=== PATIENT | female | born 1980 ===

== ENCOUNTER 2017-10-16 15:35 | Emergency (ER) | payer BC ==
[2017-10-16 15:37] VITALS: BMI 30.9
[2017-10-16 15:42] VITALS: RESP 18
[2017-10-16 16:20] VITALS: TEMP 98.6
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
[2017-10-16 16:36] LABS: ALBUMIN 4.5 g/dL (3.0-4.8); ALT/SGPT 25 U/L (7-56); AST/SGOT 26 U/L (14-36); BLOOD UREA NITROGEN 17 mg/dL (7-21); CALCIUM 9.3 mg/dL (8.4-10.5); GFR AFRICAN-AMERICAN > 60; GFR NON-AFRICAN AMERICAN > 60
[2017-10-16 16:39] LABS: BASO # 0.01 K/mm3 (0.0-2.0); BASO % 0.2 % (0.0-3.0); EOS % 0.6 % (1.5-5.0); GRAN # 2.81 (1.4-6.5); GRAN % 59.6 % (50.0-68.0); HEMOGLOBIN 12.7 g/dL (12.0-16.0); LYMPH # 1.5 (1.2-3.4); MEAN CELL VOLUME 78.4 fl (80.0-105.0); MEAN CORPUSCULAR HEMOGLOBIN 25.9 pg (25.0-35.0); MEAN PLATELET VOLUME 11.1 fl (7.0-11.0); MONO # 0.4 (0.1-0.6); MONO % 7.6 % (1.0-6.0); RBC 4.91 10^6/uL (3.5-6.1); RED CELL DISTRIBUTION WIDTH 14.4 % (11.5-14.5); WHITE BLOOD COUNT 4.7 10^3/ul (4.5-11.0)
[2017-10-16 16:47] LABS: TROPONIN I < 0.01 ng/mL
[2017-10-16 17:04] LABS: INR 0.97 (0.93-1.08); PARTIAL THROMBOPLASTIN TIME 26.7 Seconds (25.1-36.5)
[2017-10-16 17:27] LABS: URINE BILIRUBIN NEGATIVE (NEGATIVE); URINE BLOOD NEGATIVE (NEGATIVE); URINE GLUCOSE (UA) NEGATIVE (NEGATIVE); URINE LEUKOCYTE ESTERASE NEGATIVE Leu/uL (NEGATIVE); URINE PROTEIN TRACE mg/dL (<30 mg/dL); URINE UROBILINOGEN 0.2 E.U./dL (<1 E.U./dL)
[2017-10-16 17:33] LABS: URINE APPEARANCE CLEAR (CLEAR); URINE COLOR YELLOW (YELLOW)
[2017-10-16 17:35] LABS: URINE BACTERIA TRACE (NEG); URINE EPITHELIAL CELLS 0 - 2 /hpf (0-5); URINE RBC NEGATIVE /hpf (0-2); URINE WBC 0 - 2 /hpf (0-6)
[2017-10-16 17:39] LABS: HCG,QUALITATIVE URINE NEGATIVE (NEGATIVE)
[2017-10-16 17:42] LABS: BARBITURATES, UR NEGATIVE (NEGATIVE); BENZODIAZEPINES, UR NEGATIVE (NEGATIVE); OPIATES, UR NEGATIVE (NEGATIVE); PHENCYCLIDINE, UR NEGATIVE (NEGATIVE)
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
[2017-10-16 21:34] VITALS: BP 118/78; PULSE 87; O2SAT 100
--- NOTE | 2017-10-16 22:28 | CARD ---
APPROVED REPORT EKG Measurement Heart [id number] <Conclusion> Normal sinus rhythm Normal ECG
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
== END 2017-10-16 21:47 | disposition home or self-care (01) ==
LOC: MERGE 15:35 → ED 15:35
DX: T14.8XXA Other injury of unspecified body region, initial encounter (principal); Y04.0XXA Assault by unarmed brawl or fight, initial encounter
CPT/HCPCS: 70450; 71045; 73110; 73130; 80053; 81001; 82550; 82948; 83615; 83735; 84484; 84702; 84703; 85025; 85610; 85730; 93005; 96374; 96376; 99285; G0480; J2060

== ENCOUNTER 2017-10-19 15:47 | Emergency (ER) | payer BC ==
[2017-10-19 16:31] VITALS: PULSE 79; RESP 18; TEMP 98.6; BMI 29.4
[2017-10-19 17:30] VITALS: BP 115/75; O2SAT 100
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
--- NOTE | 2017-10-19 17:50 | RAD ---
PROCEDURE: Radiographs of the Right Forearm HISTORY: right arm pain COMPARISON: None available. TECHNIQUE: Frontal and lateral views obtained. FINDINGS: BONES: There is no acute displaced fracture or bone destruction. Bone alignment and mineralization are normal. There is no joint effusion. JOINTS: Unremarkable. OTHER FINDINGS: None. IMPRESSION: No acute fracture or dislocation.
== END 2017-10-19 17:28 | disposition home or self-care (01) ==
LOC: ED 15:47
DX: S40.021D Contusion of right upper arm, subsequent encounter (principal); Y04.0XXD Assault by unarmed brawl or fight, subsequent encounter